=== PATIENT | female | born 1955 | race Two or more races ===

== ENCOUNTER 2023-05-18 10:24 | Inpatient (IN) | payer OTHER ==
[~2023-05-18] VITALS: Ht 152.4 cm; Wt 56.2 kg
--- NOTE | 2023-05-18 10:57 | NUR ---
PACIENTE ALERTA Y ORIENTADA X 3. REFIERE 1 SEMANA CON ESTRENIMIENTO. LA MISMA PRESENTO REFERIDO PARA ASISTIR A ER POR B/P EN 90/55 Y P EN 70. AL REALIZAR TRIAGE B/P EN 125/69 Y P 71.
[2023-05-18] MEDS ORDERED: TOPROL XL200 MG (10:59)
--- NOTE | 2023-05-18 14:15 | NUR ---
PTE ES EDUCADA SOBRE PROCEDIMIENTO MEDICO EL CUAL REFIERE ENTENDER. SE REALIZA FRANCISCO DE MUESTRAS BAJO MEDIDAS ASEPTICAS. SE REALIZA CANALIZACION EN BRAZO SARITA CON ANGIO #20 Y SE CINECTA IV DE 0.9NSS DE 1000 BAJANDO A 150ML/HRS.
[2023-05-18 14:32] LABS: HEMATOCRIT 34.1 % (36.0-45.00); HEMOGLOBIN 11.7 g/dL (12.0-15.00); MEAN CELL VOLUME 86.5 fL (80.00-100.00); MEAN CORPUSCULAR HEMOGLOBIN 29.8 pg (27.00-32.0); MEAN CORPUSCULAR HGB CONC 34.4 g/dl (32.0-36.0); PLATELET COUNT 283 K/uL (150-450); RED BLOOD COUNT 3.94 M/uL (4.00-6.00)
[2023-05-18 14:52] LABS: ALBUMIN 3.8 gm/dL (3.4-5.0); BILIRUBIN TOTAL 0.64 mg/dL (0.3-1.2); BILIRUBIN,CONJUGATED 0.16 mg/dL (0.0-0.2); BILIRUBIN,UNCONJUGATED 0.48 mg/dL (0.0-0.6); CREATININE SERUM 3.08 mg/dL (0.55-1.02); GFR 15.15; GLOBULINA 5.7 G/DL (2.4-3.5); TOTAL PROTEIN 9.5 gm/dL (6.4-8.2)
[2023-05-18 14:53] LABS: INR 1.09; PARTIAL THROMBOPLASTIN TIME 23.7 SECONDS (22.0-34.0); PROTHROMBIN TIME 11.4 SECONDS (9.0-11.5)
[2023-05-18 15:48] LABS: PH,URINE 6.5 (5.0-8.0); URINE APPEARANCE Cloudy; URINE BILIRRUBIN Negative (NEGATIVE); URINE BLOOD Trace; URINE COLOR Yellow; URINE GLUCOSE Negative (NEGATIVE); URINE LEUKOCYTE Large; URINE NITRATE Negative; URINE PROTEIN Trace (NEGATIVE); URINE UROBILINOGEN 0.2 E.U./dl
[2023-05-18 15:49] LABS: URINE EPITHELIAL CELLS 37.4 uL (0.0-38.8); URINE RBC 3.5 uL (0.0-20.8); URINE WBC 233.3 uL (0.0-23.2)
[2023-05-18 15:56] LABS: CALCIUM 14.5 mg/dL (8.5-10.1); POTASSIUM 2.76 mEq/L (3.5-5.1)
[2023-05-18 16:19] LABS: URINE BACTERIA > 9821.5 uL (0.0-1933)
[2023-05-18] MEDS ORDERED: POTASSIUM CHLORIDE/D5-0.45NACL 1,000 ML IV ONE (17:30)
[2023-05-18 19:01] LABS: ALBUMIN 3.1 gm/dL (3.4-5.0); BILIRUBIN TOTAL 0.48 mg/dL (0.3-1.2); CREATININE SERUM 2.88 mg/dL (0.55-1.02); GFR 16.37; GLOBULINA 4.7 G/DL (2.4-3.5); POTASSIUM 3.25 mEq/L (3.5-5.1); TOTAL PROTEIN 7.8 gm/dL (6.4-8.2)
[2023-05-18 19:04] LABS: CALCIUM 13.5 mg/dL (8.5-10.1)
[2023-05-18] MEDS ORDERED: 0.9 % SODIUM CHLORIDE 1,000 ML IV ONE (20:15)
[2023-05-18] MEDS ORDERED: CEFTRIAXONE SODIUM 2,000 MG in 0.9 % SODIUM CHLORIDE 100 ML IV SCH (21:41)
[2023-05-18] MEDS ORDERED: 0.9 % SODIUM CHLORIDE 1,000 ML IV SCH (21:45)
[2023-05-18] MEDS ORDERED: ONDANSETRON HCL 4 MG in 0.9 % SODIUM CHLORIDE 50 ML IV PRN (21:45)
[2023-05-18] MEDS ORDERED: ACETAMINOPHEN 500 MG GEL..CAP PO PRN (21:45)
[2023-05-19 00:10] LABS: INR 1.14; PARTIAL THROMBOPLASTIN TIME 27.3 SECONDS (22.0-34.0); PROTHROMBIN TIME 11.9 SECONDS (9.0-11.5)
[2023-05-19] MEDS ORDERED: ENOXAPARIN SODIUM 30 MG/0.3 ML SYRINGE SUBCUTANEO SCH (09:00)
[2023-05-19] MEDS ORDERED: FAMOTIDINE/PF 20 MG in 0.9 % SODIUM CHLORIDE 8 ML IV PUSH SCH (09:00)
[2023-05-19] MEDS ORDERED: METOPROLOL SUCCINATE 100 MG TAB.SR.24H PO SCH (09:00)
[2023-05-19 12:45] LABS: ALBUMIN 3.3 gm/dL (3.4-5.0); BILIRUBIN TOTAL 0.39 mg/dL (0.3-1.2); CREATININE SERUM 2.68 mg/dL (0.55-1.02); GFR 17.78; GLOBULINA 4.6 G/DL (2.4-3.5); MAGNESIUM 2.2 mg/dL (1.8-2.4); POTASSIUM 3.06 mEq/L (3.5-5.1); TOTAL PROTEIN 7.9 gm/dL (6.4-8.2); TSH 1.61 uIU/mL (0.358-3.74)
[2023-05-19 13:18] LABS: CALCIUM 13.5 mg/dL (8.5-10.1)
[2023-05-19] MEDS ORDERED: POTASSIUM CHLORIDE/D5-0.9%NACL 1,000 ML IV SCH (17:15)
[2023-05-20 06:07] LABS: HEMATOCRIT 30.4 % (36.0-45.00); HEMOGLOBIN 10.6 g/dL (12.0-15.00); MEAN CELL VOLUME 85.6 fL (80.00-100.00); MEAN CORPUSCULAR HEMOGLOBIN 29.8 pg (27.00-32.0); MEAN CORPUSCULAR HGB CONC 34.8 g/dl (32.0-36.0); PLATELET COUNT 237 K/uL (150-450); RED BLOOD COUNT 3.56 M/uL (4.00-6.00); RED CELL DISTRIBUTION WIDTH 13.4 % (11.5-14.5)
[2023-05-20 06:56] LABS: BILIRUBIN TOTAL 0.26 mg/dL (0.3-1.2); CALCIUM 11.4 mg/dL (8.5-10.1); CREATININE SERUM 2.33 mg/dL (0.55-1.02); GFR 20.9; GLOBULINA 4.1 G/DL (2.4-3.5); PHOSPHOROUS 2.5 mg/dL (2.5-4.9); POTASSIUM 3.1 mEq/L (3.5-5.1); TOTAL PROTEIN 7.1 gm/dL (6.4-8.2)
[2023-05-20] MEDS ORDERED: DOCUSATE CALCIUM 240 MG CAPSULE PO SCH (09:00)
[2023-05-20 16:15] LABS: PH,URINE 7.5 (5.0-8.0); URINE APPEARANCE Clear; URINE BILIRRUBIN Negative (NEGATIVE); URINE BLOOD Negative; URINE COLOR Yellow; URINE GLUCOSE Negative (NEGATIVE); URINE LEUKOCYTE Negative; URINE NITRATE Negative; URINE PROTEIN Trace (NEGATIVE); URINE UROBILINOGEN 0.2 E.U./dl
[2023-05-20 16:19] LABS: URINE BACTERIA 50.4 uL (0.0-1933); URINE RBC 2.7 uL (0.0-20.8); URINE WBC 7.3 uL (0.0-23.2)
[2023-05-20] MEDS ORDERED: POTASSIUM BICARBONATE/CIT AC 25 MEQ TABLET.EFF PO ONE (16:45)
[2023-05-20] MEDS ORDERED: SPIRONOLACTONE 25 MG TABLET PO STA (17:43)
[2023-05-21 05:13] LABS: HEMATOCRIT 29.2 % (36.0-45.00); MEAN CORPUSCULAR HGB CONC 35.1 g/dl (32.0-36.0); PLATELET COUNT 206 K/uL (150-450); RED CELL DISTRIBUTION WIDTH 13.2 % (11.5-14.5)
[2023-05-21 05:17] LABS: HEMOGLOBIN 10.2 g/dL (12.0-15.00)
[2023-05-21 05:42] LABS: BILIRUBIN TOTAL 0.4 mg/dL (0.3-1.2); CALCIUM 11.9 mg/dL (8.5-10.1); CREATININE SERUM 2.01 mg/dL (0.55-1.02); GFR 24.78; GLOBULINA 4.4 G/DL (2.4-3.5); MAGNESIUM 1.9 mg/dL (1.8-2.4); POTASSIUM 3.39 mEq/L (3.5-5.1); TOTAL PROTEIN 7.4 gm/dL (6.4-8.2)
[2023-05-21] MEDS ORDERED: SODIUM CHLORIDE 0.45 % 1,000 ML IV SCH (07:00)
[2023-05-21] MEDS ORDERED: 0.9 % SODIUM CHLORIDE 10 ML VIAL IJ ONE (07:52)
[2023-05-21] MEDS ORDERED: POLYETHYLENE GLYCOL 3350 17 GM BLIST.PACK PO SCH (09:00)
[2023-05-21] MEDS ORDERED: POTASSIUM BICARBONATE/CIT AC 25 MEQ TABLET.EFF PO SCH (17:58)
[2023-05-22 06:01] LABS: ALBUMIN 3.1 gm/dL (3.4-5.0); CALCIUM 12.1 mg/dL (8.5-10.1); CREATININE SERUM 2.03 mg/dL (0.55-1.02); GFR 24.5; PHOSPHOROUS 2.9 mg/dL (2.5-4.9); POTASSIUM 3.58 mEq/L (3.5-5.1)
[2023-05-22 18:07] LABS: BETA-2-MICROGLOBULINA 7.2 mg/L (0.6-2.4)
[2023-05-23] MEDS ORDERED: DOCUSATE SODIUM 100MG CAP PO SCH (09:00)
[2023-05-23] MEDS ORDERED: POLYETHYLENE GLYCOL 3350 17 GM BLIST.PACK PO SCH (09:00)
[2023-05-23 09:07] LABS: ALBUMIN 2.5 gm/dL (3.4-5.0); BILIRUBIN TOTAL 0.34 mg/dL (0.3-1.2); CALCIUM 10.9 mg/dL (8.5-10.1); CREATININE SERUM 1.93 mg/dL (0.55-1.02); GFR 25.97; GLOBULINA 4.1 G/DL (2.4-3.5); POTASSIUM 3.7 mEq/L (3.5-5.1); TOTAL PROTEIN 6.6 gm/dL (6.4-8.2)
[2023-05-23 16:09] LABS: kappa lambda r 2.06 (0.26-1.65); lambda light 60.1 mg/L (5.7-26.3)
[2023-05-25 07:01] LABS: HEMATOCRIT 27.3 % (36.0-45.00); HEMOGLOBIN 9.6 g/dL (12.0-15.00); MEAN CELL VOLUME 85.1 fL (80.00-100.00); MEAN CORPUSCULAR HEMOGLOBIN 29.9 pg (27.00-32.0); MEAN CORPUSCULAR HGB CONC 35.1 g/dl (32.0-36.0); PLATELET COUNT 206 K/uL (150-450); RED BLOOD COUNT 3.21 M/uL (4.00-6.00); RED CELL DISTRIBUTION WIDTH 13.7 % (11.5-14.5)
[2023-05-25 07:17] LABS: ALBUMIN 2.8 gm/dL (3.4-5.0); BILIRUBIN TOTAL 0.32 mg/dL (0.3-1.2); CALCIUM 10.7 mg/dL (8.5-10.1); CREATININE SERUM 1.62 mg/dL (0.55-1.02); GFR 31.79; GLOBULINA 4.1 G/DL (2.4-3.5); PHOSPHOROUS 2.4 mg/dL (2.5-4.9); POTASSIUM 3.13 mEq/L (3.5-5.1); TOTAL PROTEIN 6.9 gm/dL (6.4-8.2)
[2023-05-25] MEDS ORDERED: POTASSIUM CHLORIDE IN WATER 100 ML IV ONE (08:15)
[2023-05-26] MEDS ORDERED: ACETAMINOPHEN 500 MG GEL..CAP PO PRN (07:45)
[2023-05-26] MEDS ORDERED: VITAMIN B COMPLEX/LYSINE 1 ML ML PO SCH (09:00)
[2023-05-26] MEDS ORDERED: ENOXAPARIN SODIUM 30 MG/0.3 ML SYRINGE SUBCUTANEO SCH (09:00)
[2023-05-26] MEDS ORDERED: ENOXAPARIN SODIUM 40 MG/0.4 ML SYRINGE SUBCUTANEO SCH (09:00)
[2023-05-26] MEDS ORDERED: SOD FERRIC GLUC COMPLX/SUCROSE 62.5 MG/5 ML AMPUL IV SCH (09:19)
[2023-05-26] MEDS ORDERED: Cyanocobalamin/Mecobalamin 1 TAB.SL SL SCH (09:19)
[2023-05-26] MEDS ORDERED: VITAMIN B COMPLEX 1 EACH PO SCH (09:20)
[2023-05-26] MEDS ORDERED: THIAMINE HCL 100 MG/ML 2 ML VIAL IV SCH (09:20)
[2023-05-26 16:07] LABS: a:g ratio 0.8 (0.7-1.7); alpha 1 g 0.3 g/dL (0.0-0.4); alpha 2 0.8 g/dL (0.4-1.0); gamma g 2.1 g/dL (0.4-1.8); globulin t 4.1 g/dL (2.2-3.9); prot total 7.3 g/dL (6.0-8.5)
[2023-05-26] MEDS ORDERED: fentaNYL CITRATE 50 MCG/ML AMPUL IV PUSH ONE ×2 (16:45→17:30)
[2023-05-26] MEDS ORDERED: MIDAZOLAM HCL 2 MG/2 ML VIAL IV PUSH ONE ×2 (16:45→17:30)
[2023-05-26] MEDS ORDERED: CLONAZEPAM 0.5 MG TABLET PO SCH (21:00)
[2023-05-27 15:13] LABS: HEMATOCRIT 28.4 % (36.0-45.00); HEMOGLOBIN 9.8 g/dL (12.0-15.00); MEAN CORPUSCULAR HEMOGLOBIN 29.5 pg (27.00-32.0); MEAN CORPUSCULAR HGB CONC 34.4 g/dl (32.0-36.0); PLATELET COUNT 196 K/uL (150-450); RED CELL DISTRIBUTION WIDTH 13.6 % (11.5-14.5)
[2023-05-27 15:39] LABS: CREATININE SERUM 1.3 mg/dL (0.55-1.02); GFR 40.98
[2023-05-27 15:55] LABS: POTASSIUM 2.69 mEq/L (3.5-5.1)
[2023-05-27] MEDS ORDERED: BISACODYL 5 MG TABLET.EC PO ONE ×2 (16:00→19:00)
[2023-05-27] MEDS ORDERED: POLYETHYLENE GLYCOL 3350 17 GM BLIST.PACK PO ONE ×2 (16:00)
[2023-05-27] MEDS ORDERED: POTASSIUM CHLORIDE IN WATER 100 ML IV SCH (17:00)
[2023-05-27] MEDS ORDERED: BARIUM SULFATE 450 ML ORAL.SUSP PO ONE (18:00)
[2023-05-27] MEDS ORDERED: ONDANSETRON HCL 4 MG in 0.9 % SODIUM CHLORIDE 50 ML IV PRN (21:30)
[2023-05-28] MEDS ORDERED: MIDAZOLAM HCL 2 MG/2 ML VIAL IV ONE (11:30)
[2023-05-28] MEDS ORDERED: fentaNYL CITRATE 50 MCG/ML AMPUL IV PUSH ONE (11:30)
[2023-05-28 14:07] LABS: CA 125 6.9 U/mL (0.0-38.1); CA 15-3 11.3 U/mL (0.0-25.0)
[2023-05-28 14:07] LABS: alb, ur 25.6 % (.); beta glo ur 40.5 % (.); gamma glo ur 12.7 % (.); t prot u 8.6 mg/dL (Not Estab.)
[2023-05-28] MEDS ORDERED: POLYETHYLENE GLYCOL 3350 17 GM BLIST.PACK PO ONE (16:00)
[2023-05-28] MEDS ORDERED: BISACODYL 5 MG TABLET.EC PO ONE (19:00)
[2023-05-28] MEDS ORDERED: POTASSIUM CHLORIDE 20MEQ/100ML H2O PB IV ONE (19:44)
[2023-05-28] MEDS ORDERED: IOHEXOL 350 mgI/ML 50ML BOTT PO ONE (21:00)
[2023-05-28 22:32] LABS: CALCIUM 10.4 mg/dL (8.5-10.1); CREATININE SERUM 1.13 mg/dL (0.55-1.02); GFR 48.17; MAGNESIUM 1.5 mg/dL (1.8-2.4)
[2023-05-28 22:46] LABS: POTASSIUM 2.62 mEq/L (3.5-5.1)
[2023-05-28] MEDS ORDERED: POTASSIUM BICARBONATE/CIT AC 25 MEQ TABLET.EFF PO SCH ×2 (23:00→23:15)
[2023-05-29] MEDS ORDERED: POTASSIUM BICARBONATE/CIT AC 25 MEQ TABLET.EFF PO STA (05:47)
[2023-05-29] MEDS ORDERED: BISACODYL 10 MG/SUPP.RECT SUPP.RECT RECTAL ONE (06:00)
[2023-05-29] MEDS ORDERED: MAGNESIUM SULFATE IN WATER 50 ML IV ONE (07:15)
[2023-05-29 09:27] LABS: C-REACTIVE PROTEIN 4.26 MG/DL (0.00-0.29); CALCIUM 10.3 mg/dL (8.5-10.1); CREATININE SERUM 0.99 mg/dL (0.55-1.02); GFR 56.12; MAGNESIUM 1.6 mg/dL (1.8-2.4); POTASSIUM 3.07 mEq/L (3.5-5.1)
[2023-05-29] MEDS ORDERED: POTASSIUM BICARBONATE/CIT AC 25 MEQ TABLET.EFF PO SCH (17:00)
[2023-05-29] MEDS ORDERED: POTASSIUM CHLORIDE 20MEQ/100ML H2O PB IV ONE (21:23)
[2023-05-30 14:07] LABS: ANGIOTENSIN CONVERTING ENZYME 71 U/L (14-82)
[2023-05-31 08:10] LABS: HEMATOCRIT 25.8 % (36.0-45.00); HEMOGLOBIN 9.4 g/dL (12.0-15.00); MEAN CELL VOLUME 84.7 fL (80.00-100.00); MEAN CORPUSCULAR HEMOGLOBIN 30.8 pg (27.00-32.0); MEAN CORPUSCULAR HGB CONC 36.4 g/dl (32.0-36.0); PLATELET COUNT 202 K/uL (150-450); RED BLOOD COUNT 3.05 M/uL (4.00-6.00); RED CELL DISTRIBUTION WIDTH 13.4 % (11.5-14.5)
[2023-05-31 10:04] LABS: ALBUMIN 2.8 gm/dL (3.4-5.0); BILIRUBIN TOTAL 0.47 mg/dL (0.3-1.2); CALCIUM 10.8 mg/dL (8.5-10.1); CREATININE SERUM 1.1 mg/dL (0.55-1.02); GFR 49.69; GLOBULINA 3.6 G/DL (2.4-3.5); POTASSIUM 3.1 mEq/L (3.5-5.1); TOTAL PROTEIN 6.4 gm/dL (6.4-8.2)
[2023-05-31] MEDS ORDERED: POTASSIUM CHLORIDE IN WATER 100 ML IV ONE (11:15)
[2023-06-01 06:57] LABS: CALCIUM 10.8 mg/dL (8.5-10.1); CREATININE SERUM 0.97 mg/dL (0.55-1.02); GFR 57.46; MAGNESIUM 1.9 mg/dL (1.8-2.4); PHOSPHOROUS 2.4 mg/dL (2.5-4.9)
[2023-06-01 07:49] LABS: C-REACTIVE PROTEIN 2.21 MG/DL (0.00-0.29); POTASSIUM 2.86 mEq/L (3.5-5.1)
[2023-06-01] MEDS ORDERED: POTASSIUM CHLORIDE 20MEQ/100ML H2O PB IV ONE (10:00)
[2023-06-02] MEDS ORDERED: TUBERCULIN,PURIF.PROT.DERIV. 10 SKIN.TEST SKIN.TEST ID ONE (07:00)
[2023-06-02 14:45] LABS: BILIRUBIN TOTAL 0.44 mg/dL (0.3-1.2); CALCIUM 12.2 mg/dL (8.5-10.1); CREATININE SERUM 1.23 mg/dL (0.55-1.02); GFR 43.68; GLOBULINA 3.9 G/DL (2.4-3.5); POTASSIUM 3.1 mEq/L (3.5-5.1); TOTAL PROTEIN 6.9 gm/dL (6.4-8.2)
[2023-06-02] MEDS ORDERED: POTASSIUM CHLORIDE IN WATER 100 ML IV ONE (16:00)
[2023-06-03] MEDS ORDERED: POTASSIUM BICARBONATE/CIT AC 25 MEQ TABLET.EFF PO ONE (08:23)
[2023-06-03] MEDS ORDERED: ZOLEDRONIC ACID 4MG/5ML VIAL IV ONE (12:00)
[2023-06-03] MEDS ORDERED: ENOXAPARIN SODIUM 40 MG/0.4 ML SYRINGE SUBCUTANEO SCH (13:27)
[2023-06-03] MEDS ORDERED: THIAMINE HCL 100 MG/ML 2 ML VIAL IV SCH (13:28)
[2023-06-03] MEDS ORDERED: MULTIVIT INFUSN,ADULT 4,VIT K 10 ML VIAL IV SCH (13:28)
[2023-06-04 08:06] LABS: HEMATOCRIT 29.1 % (36.0-45.00); MEAN CELL VOLUME 84.7 fL (80.00-100.00); MEAN CORPUSCULAR HGB CONC 34.2 g/dl (32.0-36.0); PLATELET COUNT 198 K/uL (150-450); RED BLOOD COUNT 3.44 M/uL (4.00-6.00); RED CELL DISTRIBUTION WIDTH 14.1 % (11.5-14.5)
[2023-06-04 08:24] LABS: CALCIUM 11.2 mg/dL (8.5-10.1); CREATININE SERUM 1.17 mg/dL (0.55-1.02); GFR 46.14; MAGNESIUM 1.8 mg/dL (1.8-2.4); PHOSPHOROUS 2.6 mg/dL (2.5-4.9); POTASSIUM 3.16 mEq/L (3.5-5.1)
[2023-06-04] MEDS ORDERED: PREDNISONE 20 MG TABLET PO SCH (09:00)
[2023-06-04] MEDS ORDERED: PANTOPRAZOLE SODIUM 40 MG TABLET.DR PO SCH (09:02)
[2023-06-04] MEDS ORDERED: ONDANSETRON HCL 2 MG/ML VIAL IV PRN (09:15)
[2023-06-05 20:11] LABS: quan ag 0.12 IU/mL (.); quan ag 0.13 IU/mL (.); quan mito > 10.00 IU/mL (.); quant nil 0.11 IU/mL (.)
[2023-06-06 11:46] LABS: HEMATOCRIT 30.2 % (36.0-45.00); HEMOGLOBIN 10.6 g/dL (12.0-15.00); MEAN CELL VOLUME 87.4 fL (80.00-100.00); MEAN CORPUSCULAR HEMOGLOBIN 30.7 pg (27.00-32.0); MEAN CORPUSCULAR HGB CONC 35.1 g/dl (32.0-36.0); PLATELET COUNT 256 K/uL (150-450); RED BLOOD COUNT 3.45 M/uL (4.00-6.00); RED CELL DISTRIBUTION WIDTH 14.4 % (11.5-14.5)
[2023-06-06 12:11] LABS: ALBUMIN 3.3 gm/dL (3.4-5.0); BILIRUBIN TOTAL 0.4 mg/dL (0.3-1.2); CALCIUM 11.3 mg/dL (8.5-10.1); CREATININE SERUM 1.33 mg/dL (0.55-1.02); GFR 39.79; GLOBULINA 4.2 G/DL (2.4-3.5); POTASSIUM 3.52 mEq/L (3.5-5.1); TOTAL PROTEIN 7.5 gm/dL (6.4-8.2)
[2023-06-08 05:46] LABS: HEMATOCRIT 30.9 % (36.0-45.00); HEMOGLOBIN 10.7 g/dL (12.0-15.00); MEAN CELL VOLUME 86.7 fL (80.00-100.00); MEAN CORPUSCULAR HGB CONC 34.6 g/dl (32.0-36.0); PLATELET COUNT 224 K/uL (150-450); RED BLOOD COUNT 3.56 M/uL (4.00-6.00); RED CELL DISTRIBUTION WIDTH 14.9 % (11.5-14.5)
[2023-06-08 07:31] LABS: ALBUMIN 2.8 gm/dL (3.4-5.0); BILIRUBIN TOTAL 0.31 mg/dL (0.3-1.2); CALCIUM 9.3 mg/dL (8.5-10.1); CREATININE SERUM 1.05 mg/dL (0.55-1.02); GFR 52.27; GLOBULINA 3.5 G/DL (2.4-3.5); POTASSIUM 3.49 mEq/L (3.5-5.1); TOTAL PROTEIN 6.3 gm/dL (6.4-8.2)
[2023-06-08] MEDS ORDERED: PANTOPRAZOLE SO40 MG PO (09:06)
[2023-06-08] MEDS ORDERED: PREDNISONE20 MG PO (09:06)
[2023-06-08] MEDS ORDERED: B Complex PO (09:08)
[2023-06-08] MEDS ORDERED: Neurin-Sl Tablet Sl SL (09:08)
[2023-06-08] MEDS ORDERED: TOPROL XL100 M1 PO (09:08)
== END 2023-06-08 10:36 | disposition home or self-care (01) | DRG 988 ==
LOC: ER 10:26 → MEDI 22:16 → MEDJ 05-26 08:40
PROVIDERS: Emergency Medicine; General Practice; Internal Medicine; Internal Medicine Endocrinology, Diabetes & Metabolism; Internal Medicine Infectious Disease; Internal Medicine Nephrology; ADMIT Internal Medicine; ATTEND Internal Medicine
PROC: BW21YZZ Computerized Tomography (CT Scan) of Abdomen and Pelvis using Other Contrast (ICD-10-PCS; 2023-05-18)
PROC: BW24ZZZ Computerized Tomography (CT Scan) of Chest and Abdomen (ICD-10-PCS; 2023-05-25)
PROC: 07B73ZX Excision of Thorax Lymphatic, Percutaneous Approach, Diagnostic (ICD-10-PCS; principal; 2023-05-26)
PROC: BW4FZZZ Ultrasonography of Neck (ICD-10-PCS; 2023-05-26)
PROC: 0DJD8ZZ Inspection of Lower Intestinal Tract, Via Natural or Artificial Opening Endoscopic (ICD-10-PCS; 2023-05-28)
PROC: BW40ZZZ Ultrasonography of Abdomen (ICD-10-PCS; 2023-05-29)
PROC: 02HV33Z Insertion of Infusion Device into Superior Vena Cava, Percutaneous Approach (ICD-10-PCS; 2023-05-29)
DX: N39.0 Urinary tract infection, site not specified (principal); C78.00 Secondary malignant neoplasm of unspecified lung; N17.9 Acute kidney failure, unspecified; J90 Pleural effusion, not elsewhere classified; C79.9 Secondary malignant neoplasm of unspecified site; E87.5 Hyperkalemia; E83.52 Hypercalcemia; I10 Essential (primary) hypertension; D64.9 Anemia, unspecified; R91.8 Other nonspecific abnormal finding of lung field; R59.0 Localized enlarged lymph nodes; R63.0 Anorexia; Z68.22 Body mass index [BMI] 22.0-22.9, adult; D86.2 Sarcoidosis of lung with sarcoidosis of lymph nodes

== ENCOUNTER → 2023-11-09 13:40 | Outpatient (CLI) | payer OTHER ==
[~2023-11-09 13:40] MED LIST: B Complex PO; Neurin-Sl Tablet Sl SL; PANTOPRAZOLE SO40 MG PO; PREDNISONE20 MG PO; TOPROL XL100 M1 PO; TOPROL XL200 MG
[2023-11-09 14:25] LABS: PH,URINE 6.5 (5.0-8.0); URINE APPEARANCE Clear; URINE BILIRRUBIN Negative (NEGATIVE); URINE BLOOD Negative; URINE COLOR Dark Yellow; URINE GLUCOSE Negative (NEGATIVE); URINE LEUKOCYTE Trace; URINE NITRATE Negative; URINE PROTEIN Negative (NEGATIVE); URINE UROBILINOGEN 0.2 E.U./dl
[2023-11-09 14:29] LABS: URINE BACTERIA 143.4 uL (0.0-1933); URINE EPITHELIAL CELLS 29.5 uL (0.0-38.8); URINE RBC 10.8 uL (0.0-20.8); URINE WBC 26.8 uL (0.0-23.2)
[2023-11-09 14:29] LABS: HEMATOCRIT 35.5 % (36.0-45.00); HEMOGLOBIN 12.1 g/dL (12.0-15.00); MEAN CELL VOLUME 89.6 fL (80.00-100.00); MEAN CORPUSCULAR HEMOGLOBIN 30.6 pg (27.00-32.0); MEAN CORPUSCULAR HGB CONC 34.1 g/dl (32.0-36.0); PLATELET COUNT 200 K/uL (150-450); RED BLOOD COUNT 3.96 M/uL (4.00-6.00); RED CELL DISTRIBUTION WIDTH 12.3 % (11.5-14.5)
[2023-11-09 15:02] LABS: CALCIUM 10.3 mg/dL (8.5-10.1); CREATININE SERUM 1.22 mg/dL (0.55-1.02); GFR 43.96; INR 1.05; PARTIAL THROMBOPLASTIN TIME 28.5 SECONDS (22.0-34.0); POTASSIUM 4.12 mEq/L (3.5-5.1)
== END | disposition home or self-care (01) ==
LOC: LAB 13:40
PROVIDERS: ATTEND Specialist
DX: S61.219A Laceration without foreign body of unspecified finger without damage to nail, initial encounter (principal); Z01.818 Encounter for other preprocedural examination

== ENCOUNTER 2023-11-11 05:30 | Day surgery (SDC) | payer OTHER ==
[~2023-11-11] VITALS: Ht 157.5 cm; Wt 62.1 kg
[2023-11-11] MEDS ORDERED: CEFAZOLIN SODIUM 1,000 MG VIAL ONE (09:32)
== END 2023-11-11 14:50 | disposition home or self-care (01) ==
LOC: CIR.AMB 05:30
PROVIDERS: ATTEND Surgery Surgery of the Hand
DX: S66.125A Laceration of flexor muscle, fascia and tendon of left ring finger at wrist and hand level, initial encounter (principal); I10 Essential (primary) hypertension